=== PATIENT | male | born 1935 | race Caucasian/White ===

== ENCOUNTER 2020-09-07 22:06 | Emergency (ER) | payer MEDICARE, BC ==
[2020-09-07] MEDS ORDERED: Lidocaine 1% 10 ML MDV INJECT ONE (22:49)
--- NOTE | 2020-09-07 22:55 | EDM.PDOC ---
ED HPI GENERAL MEDICAL PROBLEM - General Stated Complaint: HEAD LAC Time Seen by Provider: 09/07/20 22:44 Source of Information: Reports: Patient History Limitations: Reports: No Limitations - History of Present Illness INITIAL COMMENTS - FREE TEXT/NARRATIVE: 84-year-old female presents the emergency department with a recent fall. Patient states that he has a history of Parkinson's so he uses a walker to walk he tripped on his walker and fell and hit his head on the floor. He denies any loss of consciousness, blurred vision or double vision. He states he does not take blood thinners. He takes carbidopa levodopa for Parkinson's disease and he states that is it. Laceration noted to left lateral eyebrow. States initially the wound did bleed significantly however once it swelled up the bleeding stopped. - Related Data Allergies Allergy/AdvReac Type Severity Reaction Status Date / Time No Known Allergies Allergy Verified 09/07/20 22:57 Home Meds: Home Meds Carbidopa/Levodopa [Sinemet 25-100 mg] 1.5 tab PO QID 02/03/16 [History] Past Medical History Musculoskeletal History: Reports: Other (See Below) Other Musculoskeletal History: polymyalgia rheumatica Neurological History: Reports: Parkinson's Other Neuro History: essential tremors Psychiatric History: Reports: None Oncologic (Cancer) History: Reports: Prostate - Past Surgical History HEENT Surgical History: Reports: Tonsillectomy GI Surgical History: Reports: Hernia, Inguinal Social & Family History - Living Situation & Occupation Living situation: Reports: , Alone Occupation: Retired ED ROS GENERAL - Review of Systems Review Of Systems: Comprehensive ROS is negative, except as noted in HPI. ED EXAM, HEAD INJURY - Physical Exam Exam: See Below Exam Limited By: No Limitations General Appearance: Alert, WD/WN, No Apparent Distress, Other (Patient does have a fine tremor noted to bilateral upper extremities. He does have a history of Parkinson's disease.) Head: Facial Lacerations (Lateral eyebrow), Facial Swelling (Left lateral eyebrow). No: Atraumatic, Normocephalic Nexus Criteria: No: Posterior, Midline Cervical Tenderness, Evidence of Intoxication, Altered Level of Consciousness, Focal Neurological Deficit, Painful Distraction Injuries Eyes: Bilateral Eye: EOMI, PERRL Ears: Normal External Exam, Hearing Grossly Normal Nose: Normal Inspection, Normal Mucousa, No Blood Throat/Mouth: Normal Inspection, Normal Lips, Normal Voice, No Airway Compromise Neck: Non-Tender, Full Range of Motion, Normal Inspection Respiratory: No Respiratory Distress, Lungs Clear, Normal Breath Sounds, No Accessory Muscle Use, Chest Non-Tender Cardiovascular: Normal Peripheral Pulses, Regular Rate, Rhythm, No Murmur GI/Abdominal Exam: No Distention (Male) Exam: Deferred Rectal (Males) Exam: Deferred Back Exam: Normal Inspection, Full Range of Motion Extremities: Normal Inspection, Normal Range of Motion, Non-Tender, No Pedal Edema, Normal Capillary Refill, Other (Fine tremor noted to bilateral upper extremities specifically in the hands.) Neurologic: Alert, Normal Mood/Affect, Oriented x 3 Skin: Normal Color, Other (Serration noted to left lateral eyebrow). No: Warm/Dry - [place] Coma Score Best Eye Response ([place]): (4) Open Spontaneously Best Verbal Response ([place]): (5) Oriented Best Motor Response ([place]): (6) Obeys Commands ED LACERATION/WOUND & TEDDY PROC - Laceration/Wound Repair Left Lateral Forehead Lac/wound length in cm: 3 Appearance: Superficial Anesthetic Type: Local Local Anesthesia - Lidocaine (Xylocaine): 1% Plain Local Anesthetic Volume: 3cc Closed with: Sutures Suture Size: 5-0 # of Sutures: 8 Suture Type: Nylon, Interrupted Course - Vital Signs Text/Narrative:: 84-year-old female with a head injury that occurred just prior to arrival. Patient states that he tripped on his walker falling to the ground hitting his left lateral head on the floor. The patient does have a laceration noted to the left lateral eyebrow. There is significant swelling noted. The patient denies being on blood thinners. Patient's past medical history includes Parkinson's disease for which he takes carbidopa levodopa. Denies any loss of consciousness with the incident also denies any blurred vision or double vision. Bleeding is controlled at the time of my assessment. Elected to order a CT scan of the head as the patient does have a significant swelling noted to the left lateral eyebrow/temporal area. I have also ordered nursing staff to obtain the lidocaine 1% for suture repair. Last Recorded V/S: Last Vital Signs Temp 97.6 F 09/07/20 22:55 Pulse 63 09/07/20 22:55 Resp 16 09/07/20 22:55 BP 161/90 H 09/07/20 22:55 Pulse Ox 95 09/07/20 22:55 - Orders/Labs/Meds Orders: Active Orders 24 hr Category Date Time Status Head wo Cont [CT] Stat Exams 09/07/20 22:49 Taken Meds: Medications Discontinued Medications Generic Name Dose Route Start Last Admin Trade Name Sylvester PRN Reason Stop Dose Admin Lidocaine HCl 10 ml 09/07/20 22:49 09/07/20 23:10 Lidocaine 1% 10 Ml Mdv INJECT 09/07/20 22:50 10 ml ONETIME ONE Administration - Re-Assessments/Exams Free Text/Narrative Re-Assessment/Exam: 09/07/20 23:56 V rad radiologist impression: 1. No acute abnormality. 2. Chronic changes are stable. Patient will be discharged to home. Departure - Departure Time of Disposition: 23:58 Disposition: Home, Self-Care 01 Condition: Good Clinical Impression: Laceration Head injury Qualifiers: Encounter type: initial encounter Qualified Code(s): S09.90XA - Unspecified injury of head, initial encounter - Discharge Information Instructions: Laceration Care, Adult Additional Instructions: You were seen in the emergency department after you had fallen striking your head on the floor just prior to arrival. A CT scan of your head was completed and this was unremarkable. Your laceration along your left eye was repaired with 8 sutures. The sutures can be removed in about 5 days. Clean the wound twice daily with mild soap and water then pat dry. May apply a thin amount of bacitracin ointment to the wound. Watch for any signs and symptoms of infection such as increased redness, swelling, warmth or pus draining from the wound. Should your condition worsen or change do not hesitate returning to the emergency department. Sepsis Event Note (ED) - Focused Exam Vital Signs: Vital Signs Temp Pulse Resp BP Pulse Ox 09/07/20 22:55 97.6 F 63 16 161/90 H 95 - My Orders Last 24 Hours: My Active Orders 09/07/20 22:49 Head wo Cont [CT] Stat - Assessment/Plan Last 24 Hours: My Active Orders 09/07/20 22:49 Head wo Cont [CT] Stat
[2020-09-07 22:57] VITALS: BP 161/90; PULSE 63
--- NOTE | 2020-09-08 08:36 | CT ---
Head CT Technique: Multiple axial sections through the brain were obtained. Intravenous contrast was not utilized. Reconstructed coronal and sagittal images were obtained. Comparison: Prior head CT study of 01/05/15. Findings: Ventricles along with basal cisterns and sulci over the convexities are moderately prominent. Scattered areas of diminished density are noted within the periventricular white matter which most likely represent small vessel ischemic demyelination change. 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 No other abnormal parenchymal densities are seen. No evidence of intracranial hemorrhage. No midline shift or mass-effect is appreciated. Small retention cysts are noted within the maxillary sinuses. Small retention cyst is also noted within the right sphenoid sinus. Nothing acute is appreciated within the visualized paranasal sinuses. Visualized mastoid sinuses show nothing acute. No acute calvarial abnormality is appreciated. Impression: 1. Senescent change as noted above. 2. Slight sinus findings which are felt to be chronic. 3. Nothing acute is appreciated on noncontrast head CT study. Diagnostic code #2 I agree with preliminary report from [facility], finalized on 09/08/20, 12:38 AM CDT
== END 2020-09-08 00:18 | disposition home or self-care (01) ==
LOC: JD.ED 22:06
DX: S09.90XA Unspecified injury of head, initial encounter (principal); S01.81XA Laceration without foreign body of other part of head, initial encounter; G20 Parkinson's disease; W01.0XXA Fall on same level from slipping, tripping and stumbling without subsequent striking against object, initial encounter
CPT/HCPCS: 12011; 12013; 70450; 70450-26; 99283; 99283-25

== ENCOUNTER 2020-09-12 13:47 | Emergency (ER) | payer MEDICARE, BC | END 2020-09-12 14:24 | LOC: JD.ED 13:47 | DX: S01.81XD Laceration without foreign body of other part of head, subsequent encounter (principal); X58.XXXD Exposure to other specified factors, subsequent encounter | CPT/HCPCS: 99282 ==

== ENCOUNTER 2020-10-13 17:14 | Emergency (ER) | payer MEDICARE, BC ==
[2020-10-13 18:02] VITALS: BP 128/75; PULSE 86
--- NOTE | 2020-10-13 18:57 | EDM.PDOC ---
ED HPI GENERAL MEDICAL PROBLEM - General Chief Complaint: Upper Extremity Injury/Pain Stated Complaint: FALL/RT SHOULDER INJURY Time Seen by Provider: 10/13/20 17:32 Source of Information: Reports: Patient History Limitations: Reports: No Limitations - History of Present Illness INITIAL COMMENTS - FREE TEXT/NARRATIVE: The patient presents with right shoulder pain. He said yesterday he fell and caught himself with his right arm and felt pain in his arm. He did not fall all the way. He did not hit his head or hurt his neck. He has no chest pain or abdominal pain. He feels he may have strained something in his shoulder. He is normally right handed but with his Parkinson's disease progressing he has been using his left hand more because he has been shaking. Onset: Sudden Duration: Day(s): (Yesterday) Location: Reports: Upper Extremity, Right (shoulder) Quality: Reports: Sharp Severity: Moderate Improves with: Reports: Immobilization Worsens with: Reports: Movement Context: Reports: Trauma (fell and cought himself) Associated Symptoms: Reports: No Other Symptoms Right Upper Shoulder Pain Score (Numeric/FACES): 5 - Related Data Allergies Allergy/AdvReac Type Severity Reaction Status Date / Time No Known Allergies Allergy Verified 10/13/20 18:02 Home Meds: Home Meds Carbidopa/Levodopa [Sinemet 25-100 mg] 1.5 tab PO QID 02/03/16 [History] Past Medical History Musculoskeletal History: Reports: Other (See Below) Other Musculoskeletal History: polymyalgia rheumatica Neurological History: Reports: Parkinson's Other Neuro History: essential tremors Psychiatric History: Reports: None Oncologic (Cancer) History: Reports: Prostate - Past Surgical History HEENT Surgical History: Reports: Tonsillectomy GI Surgical History: Reports: Hernia, Inguinal Social & Family History - Tobacco Use Tobacco Use Status *Q: Never Tobacco User Second Hand Smoke Exposure: No - Caffeine Use Caffeine Use: Reports: Coffee - Recreational Drug Use Recreational Drug Use: No - Living Situation & Occupation Living situation: Reports: , Alone Occupation: Retired Review of Systems - Review of Systems Review Of Systems: See Below Constitutional: Reports: No Symptoms Eyes: Reports: No Symptoms Ears: Reports: No Symptoms Nose: Reports: No Symptoms Mouth/Throat: Reports: No Symptoms Respiratory: Reports: No Symptoms Cardiovascular: Reports: No Symptoms GI/Abdominal: Reports: No Symptoms Musculoskeletal: Reports: Shoulder Pain (right) ED EXAM, GENERAL - Physical Exam Exam: See Below Exam Limited By: No Limitations General Appearance: Alert, No Apparent Distress Ears: Normal External Exam Nose: Normal Inspection Head: Atraumatic, Normocephalic Neck: Normal Inspection, Supple, Non-Tender Respiratory/Chest: No Respiratory Distress, Lungs Clear, Normal Breath Sounds Cardiovascular: Regular Rate, Rhythm, No Edema, No Murmur GI/Abdominal: Soft, Non-Tender, No Organomegaly, No Mass Extremities: Other (Pain upon palpation to the right shoulder. Good sensation and pulses distally. Limited range of motion due to pain.) Course - Vital Signs Last Recorded V/S: Last Vital Signs Temp 98.4 F 10/13/20 17:20 Pulse 86 10/13/20 17:20 Resp 14 10/13/20 17:20 BP 128/75 10/13/20 17:20 Pulse Ox 92 L 10/13/20 17:20 - Orders/Labs/Meds Orders: Active Orders 24 hr Category Date Time Status Shoulder Comp Rt [CR] Stat Exams 10/13/20 18:02 Taken - Re-Assessments/Exams Free Text/Narrative Re-Assessment/Exam: 10/13/20 18:58 I ordered an x-ray of his shoulder. It shows some degenerative changes but no fracture of dislocation. I will get him a sling and have him follow up with PT and Dr Cruz. Departure - Departure Time of Disposition: 19:10 Disposition: Home, Self-Care 01 Condition: Good Clinical Impression: Fall Qualifiers: Encounter type: initial encounter Qualified Code(s): W19.XXXA - Unspecified fall, initial encounter Sprain of right shoulder Qualifiers: Encounter type: initial encounter Shoulder sprain type: unspecified sprain Qualified Code(s): S43.401A - Unspecified sprain of right shoulder joint, initial encounter - Discharge Information *PRESCRIPTION DRUG MONITORING PROGRAM REVIEWED*: Not Applicable *COPY OF PRESCRIPTION DRUG MONITORING REPORT IN PATIENT YAMIL: Not Applicable Referrals: Chandan Arboleda MD [Primary Care Provider] - Cj Cruz MD [Physician] - 1 Week Forms: ED Department Discharge Additional Instructions: Wear the sling for comfort. A couple times per day, take the sling off and move your shoulder to avoid frozen shoulder. Take tylenol or motrin as needed for pain. Ice your shoulder for 15 minutes 3 times per day for 2 days. Follow up with physical therapy and Dr Cruz. Please return if you are worse. Sepsis Event Note (ED) - Evaluation Sepsis Screening Result: No Definite Risk - Focused Exam Vital Signs: Vital Signs Temp Pulse Resp BP Pulse Ox 10/13/20 17:20 98.4 F 86 14 128/75 92 L - My Orders Last 24 Hours: My Active Orders 10/13/20 18:02 Shoulder Comp Rt [CR] Stat - Assessment/Plan Last 24 Hours: My Active Orders 10/13/20 18:02 Shoulder Comp Rt [CR] Stat
--- NOTE | 2020-10-13 19:36 | CR ---
Right shoulder: 2 views of the right shoulder are obtained. Comparison: No previous shoulder images are available. Slight atelectasis is seen within the right midlung adjacent to the minor fissure. Glenohumeral joint and acromioclavicular joint appear within normal limits for the patient's age. Osteopenia is noted. No acute fracture or other bony abnormality is appreciated. Impression: 1. Findings as noted above. 2. Nothing acute is appreciated. Diagnostic code #2
== END 2020-10-13 19:15 | disposition home or self-care (01) ==
LOC: JD.ED 17:14
DX: S43.401A Unspecified sprain of right shoulder joint, initial encounter (principal); G20 Parkinson's disease; Z79.899 Other long term (current) drug therapy; W18.30XA Fall on same level, unspecified, initial encounter
CPT/HCPCS: 73030-26-RT; 73030-RT; 99282; 99283

== ENCOUNTER 2021-06-29 09:02 | Emergency (ER) | payer MEDICARE, BC ==
[2021-06-29 09:15] VITALS: PULSE 69
[2021-06-29 11:21] VITALS: BP 145/80
== END 2021-06-29 11:13 | disposition home or self-care (01) ==
LOC: JD.ED 09:02
DX: S09.90XA Unspecified injury of head, initial encounter (principal); S01.21XA Laceration without foreign body of nose, initial encounter; S00.12XA Contusion of left eyelid and periocular area, initial encounter; S00.11XA Contusion of right eyelid and periocular area, initial encounter; G20 Parkinson's disease; M19.90 Unspecified osteoarthritis, unspecified site; I25.10 Atherosclerotic heart disease of native coronary artery without angina pectoris; Z79.899 Other long term (current) drug therapy; W18.30XA Fall on same level, unspecified, initial encounter; Y92.009 Unspecified place in unspecified non-institutional (private) residence as the place of occurrence of the external cause
CPT/HCPCS: 70450; 70450-26; 99284; 99284-25

== ENCOUNTER 2021-09-08 11:31 | Emergency (ER) | payer MEDICARE, BC ==
[2021-09-08 14:01] VITALS: BP 118/87; PULSE 78
== END 2021-09-08 14:01 | disposition home or self-care (01) ==
LOC: JD.ED 11:31
DX: S00.81XA Abrasion of other part of head, initial encounter (principal); I25.10 Atherosclerotic heart disease of native coronary artery without angina pectoris; G20 Parkinson's disease; Z79.899 Other long term (current) drug therapy; W19.XXXA Unspecified fall, initial encounter
CPT/HCPCS: 36415; 70450; 70450-26; 70486; 70486-26; 80053; 81001; 85025; 99283-25; 99284

== ENCOUNTER 2022-03-20 18:25 | Emergency (ER) | payer MEDICARE, BC ==
[2022-03-20 19:01] VITALS: BP 133/70; PULSE 100
[2022-03-20 21:29] LABS: CORONAVIRUS COVID-19 NAA NEGATIVE (NEGATIVE)
== END 2022-03-20 22:30 | disposition home or self-care (01) ==
LOC: JD.ED 18:25
DX: F03.90 Unspecified dementia, unspecified severity, without behavioral disturbance, psychotic disturbance, mood disturbance, and anxiety (principal); G20 Parkinson's disease; R45.1 Restlessness and agitation; I25.10 Atherosclerotic heart disease of native coronary artery without angina pectoris; Z20.822 Contact with and (suspected) exposure to COVID-19; Z79.899 Other long term (current) drug therapy
CPT/HCPCS: 0240U; 36415; 80053; 81001; 83735; 84443; 84484; 85025; 93005; 99285; 93010; 99284

== ENCOUNTER 2022-04-13 12:49 | Emergency (ER) | payer MEDICARE, BC ==
[2022-04-13] MEDS: Sodium Chloride 0.9% 10 ML Syringe FLUSH PRN ×2 (13:15→15:11)
[2022-04-13 14:04] LABS: ESTIMATED GFR 66 mL/min (>60)
[2022-04-13 14:47] LABS: CORONAVIRUS COVID-19 NAA NEGATIVE (NEGATIVE)
[2022-04-13] MEDS ORDERED: Sodium Chloride 0.9% 100 ML IV SCH (15:00)
[2022-04-13] MEDS ORDERED: Iopamidol 755 Mg/ML 100 ML Bottle IVPUSH ONE (15:00)
[2022-04-13] MEDS ORDERED: Sodium Chloride 0.9% 10 ML Syringe FLUSH ONE (15:00)
[2022-04-13 19:27] VITALS: BP 139/84; PULSE 71
== END 2022-04-13 18:00 | disposition home or self-care (01) ==
LOC: JD.ED 12:49
DX: R07.89 Other chest pain (principal); I25.10 Atherosclerotic heart disease of native coronary artery without angina pectoris; I25.2 Old myocardial infarction; Z86.16 Personal history of COVID-19; Z20.822 Contact with and (suspected) exposure to COVID-19
CPT/HCPCS: 0240U; 36415; 71046; 71275; 80053; 81001; 84484; 85025; 85379; 86140; 93005; 99285; J3490; Q9967

== ENCOUNTER 2022-09-21 13:54 | Emergency (ER) | payer MEDICARE, BC ==
[2022-09-21 14:19] VITALS: PULSE 76
[2022-09-21 15:37] LABS: ESTIMATED GFR 74 mL/min (>60)
[2022-09-21 17:49] VITALS: BP 139/79
== END 2022-09-21 16:30 | disposition home or self-care (01) ==
LOC: JD.ED 13:54
DX: R00.1 Bradycardia, unspecified (principal); I25.10 Atherosclerotic heart disease of native coronary artery without angina pectoris; I25.2 Old myocardial infarction; G20 Parkinson's disease; Z86.16 Personal history of COVID-19; Z79.899 Other long term (current) drug therapy
CPT/HCPCS: 36415; 80053; 83735; 83880; 84484; 85025; 85610; 85730; 93005; 93010; 99283; 99284

== ENCOUNTER 2023-01-25 12:30 | Emergency (ER) | payer MEDICARE, BC ==
[2023-01-25 12:49] VITALS: PULSE 76
[2023-01-25 15:27] VITALS: BP 125/89
== END 2023-01-25 14:00 | disposition other institution (70) ==
LOC: JD.ED 12:30 → SUPCPDRO 12:30 → JD.ED 14:00
DX: R07.81 Pleurodynia (principal); I25.10 Atherosclerotic heart disease of native coronary artery without angina pectoris; Z86.16 Personal history of COVID-19; Z79.899 Other long term (current) drug therapy; W19.XXXA Unspecified fall, initial encounter
CPT/HCPCS: 71101-26-LT; 71101-LT; 99281; 99284

== ENCOUNTER 2023-01-28 04:36 | Emergency (ER) | payer MEDICARE, BC ==
[2023-01-28 06:35] VITALS: BP 137/99; PULSE 85
== END 2023-01-28 06:15 | disposition home or self-care (01) ==
LOC: JD.ED 04:36
DX: S22.32XA Fracture of one rib, left side, initial encounter for closed fracture (principal); I25.10 Atherosclerotic heart disease of native coronary artery without angina pectoris; Z86.16 Personal history of COVID-19; Z95.5 Presence of coronary angioplasty implant and graft; W19.XXXA Unspecified fall, initial encounter
CPT/HCPCS: 71101-26-LT; 71101-LT; 73502-26-LT; 73502-LT; 73560-26-LT; 73560-LT; 99283; 99284

== ENCOUNTER 2023-04-05 04:06 | Emergency (ER) | payer MEDICARE, BC ==
[2023-04-05 06:35] VITALS: BP 150/62; PULSE 75
== END 2023-04-05 09:15 | disposition other institution (70) ==
LOC: JD.ED 04:06
DX: R07.89 Other chest pain (principal)
CPT/HCPCS: 71045; 71045-26; 99283; 99284

== ENCOUNTER 2023-09-21 21:24 | Emergency (ER) | payer MEDICARE, BC ==
[2023-09-21 21:44] LABS: EOSINOPHILS ABSOLUTE AUTO 0.3 K/mm3 (0.0-0.4); EOSINOPHILS PERCENT AUTO 6.2 % (0.0-6.0); HEMATOCRIT 35.1 % (42.0-52.0); HEMOGLOBIN 11.8 gm/dl (14.0-18.0); IMMATURE GRAN ABSOLUTE AUTO 0.01 K/mm3 (0.00-0.05); IMMATURE GRAN PERCENT AUTO 0.2 % (0.0-0.4); LYMPHOCYTES PERCENT AUTO 25.4 % (24.0-44.0); MEAN CORPUSCULAR HEMOGLOBIN 33.1 pg (28.0-32.0); MEAN CORPUSCULAR HGB CONC 33.6 g/dl (32.0-36.0); MEAN CORPUSCULAR VOLUME 98.6 fl (83.0-99.0); MONOCYTES ABSOLUTE AUTO 0.6 K/mm3 (0.0-0.8); MONOCYTES PERCENT AUTO 14.4 % (0.0-8.0); NEUTROPHILS ABSOLUTE AUTO 2.1 K/mm3 (1.8-7.7); NEUTROPHILS PERCENT AUTO 52.8 % (41.0-71.0); PLATELET COUNT,PLT 165 K/mm3 (150-400); RED BLOOD CELL COUNT 3.56 M/mm3 (4.52-5.90); WHITE BLOOD CELL COUNT,WBC 4.02 K/mm3 (3.9-11.3)
[2023-09-21 22:26] LABS: A/G RATIO 0.8 (1-2); ALANINE AMINOTRANSFERASE,ALT 10 U/L (16-63); ALBUMIN 2.9 g/dl (3.4-5.0); ALKALINE PHOSPHATASE 55 U/L (46-116); ANION GAP 9.2 (5-15); ASPARTATE AMNIOTRANSFERASE,AST 17 U/L (15-37); BILIRUBIN TOTAL 0.5 mg/dL (0.2-1.0); BLOOD UREA NITROGEN,BUN 21 mg/dL (7-18); CALCIUM 8.9 mg/dL (8.5-10.1); CARBON DIOXIDE,CO2 28 mEq/L (21-32); CHLORIDE,CL 102 mEq/L (98-107); ESTIMATED GFR 73 mL/min (>60); GLUCOSE RANDOM 101 mg/dL (70-99); LIPASE 33 U/L (16-77); POTASSIUM,K 4.2 mEq/L (3.5-5.1); PROTEIN TOTAL,TP 6.6 g/dl (6.4-8.2); SODIUM,NA 135 mEq/L (136-145); TROPONIN I HIGH SENSITIVITY 10 pg/mL (<=76); TSH 22.476 uIU/mL (0.358-3.74)
[2023-09-21 22:49] LABS: T4 FREE 0.64 ng/dL (0.76-1.46)
[2023-09-21 22:51] VITALS: BP 119/72; PULSE 67
== END 2023-09-21 23:20 | disposition home or self-care (01) ==
LOC: JD.ED 21:24
DX: E03.9 Hypothyroidism, unspecified (principal); Z79.82 Long term (current) use of aspirin; Z79.899 Other long term (current) drug therapy; Z86.16 Personal history of COVID-19
CPT/HCPCS: 36415; 71045; 71045-26; 80053; 83690; 83735; 83880; 84439; 84443; 84484; 85025; 93005; 99285

== ENCOUNTER 2023-09-24 10:57 | Inpatient (IN) | payer MEDICARE, BC ==
[2023-09-24 11:47] LABS: BASOPHILS PERCENT AUTO 0.2 % (0.0-1.0); HEMATOCRIT 41.5 % (42.0-52.0); IMMATURE GRAN ABSOLUTE AUTO 0.07 K/mm3 (0.00-0.05); IMMATURE GRAN PERCENT AUTO 0.4 % (0.0-0.4); LYMPHOCYTES ABSOLUTE AUTO 0.8 K/mm3 (1.0-4.8); LYMPHOCYTES PERCENT AUTO 5.2 % (24.0-44.0); MEAN CORPUSCULAR HEMOGLOBIN 33.1 pg (28.0-32.0); MEAN CORPUSCULAR HGB CONC 33.5 g/dl (32.0-36.0); MEAN CORPUSCULAR VOLUME 98.8 fl (83.0-99.0); MONOCYTES ABSOLUTE AUTO 0.9 K/mm3 (0.0-0.8); MONOCYTES PERCENT AUTO 5.4 % (0.0-8.0); NEUTROPHILS ABSOLUTE AUTO 14.1 K/mm3 (1.8-7.7); NEUTROPHILS PERCENT AUTO 88.8 % (41.0-71.0); PLATELET COUNT,PLT 191 K/mm3 (150-400); WHITE BLOOD CELL COUNT,WBC 15.88 K/mm3 (3.9-11.3)
[2023-09-24] MEDS: Sodium Chloride 0.9% 10 ML Syringe FLUSH PRN (11:47)
[2023-09-24] MEDS: Sodium Chloride 0.9% 10 ML Syringe FLUSH ONE (11:47)
[2023-09-24 11:48] LABS: HEMOGLOBIN 13.9 gm/dl (14.0-18.0)
[2023-09-24 11:56] LABS: APPEARANCE,URINE CLEAR (Clear); BILIRUBIN,URINE NEGATIVE (Negative); COLOR,URINE YELLOW (Yellow); GLUCOSE,URINE NEGATIVE (Negative); KETONES,URINE TRACE (Negative); LEUKOCYTE ESTERASE,URINE NEGATIVE (Negative); NITRITE,URINE NEGATIVE (Negative); OCCULT BLOOD,URINE NEGATIVE (Negative); PROTEIN,URINE TRACE (Negative); UROBILINOGEN,URINE 0.2 (0.2-1.0)
[2023-09-24] MEDS: Sodium Chloride 0.9% 1,000 ML IV STA (11:56)
[2023-09-24] MEDS: Ondansetron 4 MG/2 ML SDV IVPUSH ONE (11:57)
[2023-09-24 12:08] LABS: EPITHELIAL CELLS,URINE 0-5 /hpf (0-5); RBC,URINE 0-5 /hpf (0-5); WBC,URINE 0-5 /hpf (0-5)
[2023-09-24 12:09] LABS: BACTERIA,URINE FEW /hpf (FEW); MUCUS,URINE MANY /hpf (FEW)
[2023-09-24] MEDS: Iopamidol 612 MG/ML 100 ML Bottle IVPUSH ONE (12:13)
[2023-09-24 12:14] LABS: A/G RATIO 0.7 (1-2); ALBUMIN 3.1 g/dl (3.4-5.0); ANION GAP 14.1 (5-15); BILIRUBIN TOTAL 0.7 mg/dL (0.2-1.0); BUN/CREATININE RATIO 25.7 (14-18); C-REACTIVE PROTEIN 2.73 mg/dL (<0.30); CREATININE 1.4 mg/dL (0.7-1.3); EST CRCL DRUG DOSING (CG) 32.95 mL/min; POTASSIUM,K 5.1 mEq/L (3.5-5.1); PROTEIN TOTAL,TP 7.3 g/dl (6.4-8.2)
[2023-09-24 12:18] LABS: LACTIC ACID 2.5 mmol/L (0.4-2.0)
[2023-09-24] MEDS: Sodium Chloride 0.9% 500 ML IV STA (12:24)
[2023-09-24] MEDS: cefTRIAXone 2 GM in Sodium Chloride 0.9% 100 ML IV ONE (13:04)
[2023-09-24 13:11] LABS: CORONAVIRUS COVID-19 NAA NEGATIVE (NEGATIVE); INFLUENZA A NAA NEGATIVE (NEGATIVE); RESPIRATORY SYNCYTIAL VIR NAA NEGATIVE (NEGATIVE)
[2023-09-24] MEDS: Benzocaine 20% Topical Spray UD MUCMEM ONE (13:20)
[2023-09-24] MEDS ORDERED: Acetaminophen 325 MG Tab PO PRN (13:33)
[2023-09-24] MEDS ORDERED: Ketorolac 30 MG/ML SDV IM PRN (13:33)
[2023-09-24] MEDS ORDERED: Morphine 2 MG/ML SYRINGE IVPUSH PRN (13:33)
[2023-09-24] MEDS ORDERED: Ondansetron 4 MG/2 ML SDV IV PRN (13:33)
[2023-09-24] MEDS ORDERED: Naloxone 0.4 MG/ML SDV IVPUSH PRN (13:33)
[2023-09-24 14:42] LABS: TSH 3.651 uIU/mL (0.358-3.74)
[2023-09-24] MEDS ORDERED: Non-Formulary Medication 1 Each (Carbidopa/Levodopa [Rytary Er 48.75 Mg-195 Mg Cap] 1 EACH PO SCH (15:00)
[2023-09-24] MEDS ORDERED: Ketorolac 15 MG/ML SDV IM PRN (15:14)
[2023-09-24] MEDS: Enoxaparin 40 MG/0.4 ML Syringe SUBCUT SCH (15:48)
[2023-09-24] MEDS: Ampicillin/Sulbactam Na 1.5 GM in Sodium Chloride 0.9% 100 ML IV SCH (15:50)
[2023-09-24] MEDS: Famotidine 20 MG/2 ML SDV IVPUSH SCH (15:50)
[2023-09-24] MEDS: Sodium Chloride 0.9% 1,000 ML IV SCH (16:37)
[2023-09-24] MEDS: atorvaSTATin 20 MG Tab PO SCH (20:41)
[2023-09-24] MEDS: Melatonin 3 MG Tab PO SCH (20:41)
[2023-09-24] MEDS: QUEtiapine 25 MG Tab PO SCH (20:41)
[2023-09-25] MEDS: Levothyroxine 50 MCG Tab PO SCH (06:22)
[2023-09-25] MEDS: Aspirin 81 MG Tab.EC PO SCH (08:03)
[2023-09-25] MEDS: Cholecalciferol (Vitamin D3) 25 MCG Tab PO SCH (08:03)
[2023-09-25] MEDS ORDERED: Ketorolac 15 MG/ML SDV IVPUSH PRN (08:21)
[2023-09-25 09:29] LABS: BASOPHILS PERCENT AUTO 0.3 % (0.0-1.0); EOSINOPHILS ABSOLUTE AUTO 0.1 K/mm3 (0.0-0.4); HEMATOCRIT 31.2 % (42.0-52.0); IMMATURE GRAN ABSOLUTE AUTO 0.02 K/mm3 (0.00-0.05); IMMATURE GRAN PERCENT AUTO 0.3 % (0.0-0.4); LYMPHOCYTES ABSOLUTE AUTO 0.9 K/mm3 (1.0-4.8); LYMPHOCYTES PERCENT AUTO 12.9 % (24.0-44.0); MEAN CORPUSCULAR HGB CONC 32.7 g/dl (32.0-36.0); MEAN PLATELET VOLUME 9.5 fl (9.4-12.4); MONOCYTES ABSOLUTE AUTO 0.6 K/mm3 (0.0-0.8); MONOCYTES PERCENT AUTO 8.2 % (0.0-8.0); NEUTROPHILS ABSOLUTE AUTO 5.5 K/mm3 (1.8-7.7); NEUTROPHILS PERCENT AUTO 77.3 % (41.0-71.0); PLATELET COUNT,PLT 123 K/mm3 (150-400); RED BLOOD CELL COUNT 3.09 M/mm3 (4.52-5.90); WHITE BLOOD CELL COUNT,WBC 7.08 K/mm3 (3.9-11.3)
[2023-09-25 09:48] LABS: HEMOGLOBIN 10.2 gm/dl (14.0-18.0)
[2023-09-25] MEDS ORDERED: Promethazine 12.5 MG in Sodium Chloride 0.9% 50 ML IV PRN (09:57)
[2023-09-25 10:01] LABS: BUN/CREATININE RATIO 31.8 (14-18); CREATININE 1.1 mg/dL (0.7-1.3); EST CRCL DRUG DOSING (CG) 41.93 mL/min; TSH 7.276 uIU/mL (0.358-3.74)
[2023-09-25 10:18] LABS: T4 FREE 0.74 ng/dL (0.76-1.46)
[2023-09-25] MEDS: RYTARY PO SCH (11:16)
[2023-09-25] MEDS: Ampicillin/Sulbactam Na 3 GM in Sodium Chloride 0.9% 100 ML IV SCH (14:17)
[2023-09-26 05:38] LABS: BASOPHILS PERCENT AUTO 0.7 % (0.0-1.0); EOSINOPHILS ABSOLUTE AUTO 0.2 K/mm3 (0.0-0.4); HEMATOCRIT 29.9 % (42.0-52.0); HEMOGLOBIN 9.6 gm/dl (14.0-18.0); IMMATURE GRAN ABSOLUTE AUTO 0.03 K/mm3 (0.00-0.05); IMMATURE GRAN PERCENT AUTO 0.6 % (0.0-0.4); LYMPHOCYTES ABSOLUTE AUTO 0.8 K/mm3 (1.0-4.8); LYMPHOCYTES PERCENT AUTO 14.5 % (24.0-44.0); MEAN CORPUSCULAR HEMOGLOBIN 32.5 pg (28.0-32.0); MEAN CORPUSCULAR HGB CONC 32.1 g/dl (32.0-36.0); MEAN CORPUSCULAR VOLUME 101.4 fl (83.0-99.0); MEAN PLATELET VOLUME 9.6 fl (9.4-12.4); MONOCYTES ABSOLUTE AUTO 0.6 K/mm3 (0.0-0.8); MONOCYTES PERCENT AUTO 10.4 % (0.0-8.0); NEUTROPHILS ABSOLUTE AUTO 3.8 K/mm3 (1.8-7.7); NEUTROPHILS PERCENT AUTO 70.8 % (41.0-71.0); PLATELET COUNT,PLT 112 K/mm3 (150-400); RED BLOOD CELL COUNT 2.95 M/mm3 (4.52-5.90); WHITE BLOOD CELL COUNT,WBC 5.37 K/mm3 (3.9-11.3)
[2023-09-26 05:54] LABS: ANION GAP 10.4 (5-15); CREATININE 0.9 mg/dL (0.7-1.3); EST CRCL DRUG DOSING (CG) 51.25 mL/min; MAGNESIUM 1.9 mg/dL (1.8-2.4); POTASSIUM,K 3.4 mEq/L (3.5-5.1)
[2023-09-26] MEDS: LORazepam 0.5 MG Tab PO PRN (20:18)
[2023-09-26] MEDS: QUEtiapine 25 MG Tab PO SCH (20:18)
[2023-09-26] MEDS: Melatonin 3 MG Tab PO SCH (20:21)
[2023-09-26] MEDS ORDERED: Melatonin 3 MG Tab PO SCH (21:00)
[2023-09-27 05:05] LABS: BASOPHILS PERCENT AUTO 0.7 % (0.0-1.0); EOSINOPHILS ABSOLUTE AUTO 0.2 K/mm3 (0.0-0.4); EOSINOPHILS PERCENT AUTO 5.4 % (0.0-6.0); HEMATOCRIT 27.9 % (42.0-52.0); HEMOGLOBIN 9.1 gm/dl (14.0-18.0); IMMATURE GRAN ABSOLUTE AUTO 0.02 K/mm3 (0.00-0.05); IMMATURE GRAN PERCENT AUTO 0.7 % (0.0-0.4); LYMPHOCYTES ABSOLUTE AUTO 0.6 K/mm3 (1.0-4.8); MEAN CORPUSCULAR HEMOGLOBIN 32.9 pg (28.0-32.0); MEAN CORPUSCULAR HGB CONC 32.6 g/dl (32.0-36.0); MEAN CORPUSCULAR VOLUME 100.7 fl (83.0-99.0); MEAN PLATELET VOLUME 9.8 fl (9.4-12.4); MONOCYTES ABSOLUTE AUTO 0.3 K/mm3 (0.0-0.8); MONOCYTES PERCENT AUTO 10.8 % (0.0-8.0); NEUTROPHILS ABSOLUTE AUTO 1.8 K/mm3 (1.8-7.7); NEUTROPHILS PERCENT AUTO 62.4 % (41.0-71.0); PLATELET COUNT,PLT 98 K/mm3 (150-400); RED BLOOD CELL COUNT 2.77 M/mm3 (4.52-5.90); WHITE BLOOD CELL COUNT,WBC 2.95 K/mm3 (3.9-11.3)
[2023-09-27 05:24] LABS: ANION GAP 11.2 (5-15); BUN/CREATININE RATIO 22.2 (14-18); CALCIUM 7.9 mg/dL (8.5-10.1); CREATININE 0.9 mg/dL (0.7-1.3); EST CRCL DRUG DOSING (CG) 51.25 mL/min; MAGNESIUM 1.9 mg/dL (1.8-2.4); POTASSIUM,K 3.2 mEq/L (3.5-5.1)
[2023-09-27 05:45] LABS: SLIDE REVIEW ABNORMAL SMEAR
[2023-09-27] MEDS: QUEtiapine 25 MG Tab PO SCH (08:13)
[2023-09-28 05:43] LABS: BASOPHILS PERCENT AUTO 0.4 % (0.0-1.0); EOSINOPHILS ABSOLUTE AUTO 0.1 K/mm3 (0.0-0.4); EOSINOPHILS PERCENT AUTO 2.5 % (0.0-6.0); HEMATOCRIT 34.1 % (42.0-52.0); HEMOGLOBIN 11.2 gm/dl (14.0-18.0); IMMATURE GRAN ABSOLUTE AUTO 0.04 K/mm3 (0.00-0.05); IMMATURE GRAN PERCENT AUTO 0.7 % (0.0-0.4); LYMPHOCYTES PERCENT AUTO 17.6 % (24.0-44.0); MEAN CORPUSCULAR HEMOGLOBIN 32.4 pg (28.0-32.0); MEAN CORPUSCULAR HGB CONC 32.8 g/dl (32.0-36.0); MEAN CORPUSCULAR VOLUME 98.6 fl (83.0-99.0); MEAN PLATELET VOLUME 9.9 fl (9.4-12.4); MONOCYTES ABSOLUTE AUTO 0.5 K/mm3 (0.0-0.8); MONOCYTES PERCENT AUTO 9.1 % (0.0-8.0); NEUTROPHILS ABSOLUTE AUTO 3.9 K/mm3 (1.8-7.7); NEUTROPHILS PERCENT AUTO 69.7 % (41.0-71.0); PLATELET COUNT,PLT 147 K/mm3 (150-400); RED BLOOD CELL COUNT 3.46 M/mm3 (4.52-5.90); WHITE BLOOD CELL COUNT,WBC 5.58 K/mm3 (3.9-11.3)
[2023-09-28 05:58] LABS: ANION GAP 12.3 (5-15); BUN/CREATININE RATIO 18.9 (14-18); CREATININE 0.9 mg/dL (0.7-1.3); EST CRCL DRUG DOSING (CG) 51.25 mL/min; MAGNESIUM 2.1 mg/dL (1.8-2.4); POTASSIUM,K 3.3 mEq/L (3.5-5.1)
[2023-09-29 05:25] LABS: ANION GAP 12.2 (5-15); BUN/CREATININE RATIO 17.5 (14-18); CALCIUM 7.9 mg/dL (8.5-10.1); CREATININE 0.8 mg/dL (0.7-1.3); EST CRCL DRUG DOSING (CG) 57.66 mL/min; MAGNESIUM 1.9 mg/dL (1.8-2.4); POTASSIUM,K 3.2 mEq/L (3.5-5.1)
[2023-09-29 05:33] LABS: BASOPHILS PERCENT AUTO 0.4 % (0.0-1.0); EOSINOPHILS ABSOLUTE AUTO 0.3 K/mm3 (0.0-0.4); EOSINOPHILS PERCENT AUTO 5.4 % (0.0-6.0); HEMOGLOBIN 10.9 gm/dl (14.0-18.0); IMMATURE GRAN ABSOLUTE AUTO 0.04 K/mm3 (0.00-0.05); IMMATURE GRAN PERCENT AUTO 0.8 % (0.0-0.4); LYMPHOCYTES ABSOLUTE AUTO 0.8 K/mm3 (1.0-4.8); MEAN CORPUSCULAR HEMOGLOBIN 32.2 pg (28.0-32.0); MEAN CORPUSCULAR VOLUME 97.3 fl (83.0-99.0); MEAN PLATELET VOLUME 10.1 fl (9.4-12.4); MONOCYTES ABSOLUTE AUTO 0.5 K/mm3 (0.0-0.8); MONOCYTES PERCENT AUTO 10.8 % (0.0-8.0); NEUTROPHILS ABSOLUTE AUTO 3.4 K/mm3 (1.8-7.7); NEUTROPHILS PERCENT AUTO 67.6 % (41.0-71.0); PLATELET COUNT,PLT 150 K/mm3 (150-400); RED BLOOD CELL COUNT 3.39 M/mm3 (4.52-5.90)
[2023-09-29] MEDS: Potassium Bicarbonate/Cit Ac 20 MEQ Effervescent Tab PO ONE (08:58)
[2023-09-29 12:23] VITALS: BP 171/77; PULSE 79
== END 2023-09-29 12:54 | DRG 871 ==
LOC: JD.ED 10:57 → JD.MS 13:33 → JD.ED 14:52
PROVIDERS: ADMIT Student in an Organized Health Care Education/Training Program; ATTEND Student in an Organized Health Care Education/Training Program
DX: A41.9 Sepsis, unspecified organism (principal); J18.9 Pneumonia, unspecified organism; J96.01 Acute respiratory failure with hypoxia; J69.0 Pneumonitis due to inhalation of food and vomit; F02.811 Dementia in other diseases classified elsewhere, unspecified severity, with agitation; K56.609 Unspecified intestinal obstruction, unspecified as to partial versus complete obstruction; F02.80 Dementia in other diseases classified elsewhere, unspecified severity, without behavioral disturbance, psychotic disturbance, mood disturbance, and anxiety; N17.9 Acute kidney failure, unspecified; E87.20 Acidosis, unspecified; K86.2 Cyst of pancreas; Z66 Do not resuscitate; R65.20 Severe sepsis without septic shock; G20.A1 Parkinson's disease without dyskinesia, without mention of fluctuations; I25.10 Atherosclerotic heart disease of native coronary artery without angina pectoris; T45.515A Adverse effect of anticoagulants, initial encounter; I49.3 Ventricular premature depolarization; D69.59 Other secondary thrombocytopenia; G30.9 Alzheimer's disease, unspecified; E03.9 Hypothyroidism, unspecified; E78.5 Hyperlipidemia, unspecified; G47.00 Insomnia, unspecified; I45.81 Long QT syndrome; Z95.5 Presence of coronary angioplasty implant and graft; Z79.899 Other long term (current) drug therapy; Z79.82 Long term (current) use of aspirin; Z90.89 Acquired absence of other organs; Z79.890 Hormone replacement therapy; Z86.16 Personal history of COVID-19
CPT/HCPCS: 0241U; 36415; 71045; 74177; 80048; 80053; 81001; 83605; 83735; 84145; 84439; 84443; 85025; 86140; 87040; 87641; 87899; 92610; 93005; 94760; 43752; 93010; 96361; 96365; 96375; 99223; 99232; 99233; 99239; 99285; 99285-25; A9270-GY; C1758; J0295; J0696; J1650; J2405; J3490; J7030; Q9967